=== PATIENT | male | born 1940 | race Caucasian/White ===

== ENCOUNTER 2016-11-15 14:50 | Emergency (ER) | payer OTHER ==
[~2016-11-15] VITALS: Ht 195.6 cm; Wt 108.2 kg
[2016-11-15 14:52] VITALS: Ht 195.6 cm; Wt 108.2 kg
--- NOTE | 2016-11-15 15:29 | ERA ---
ER Documentation Chief Complaint Date/Time DATE: 11/15/16 TIME: 15:26 Chief Complaint FELL AT HOME AND HIT HEAD. NO LOC. C-COLLAR IN PLACE HPI This is a 76-year-old -[place] male with a known history of hypertension that presents to the emergency department after he had a mechanical fall at home 3 hours prior to arrival. The patient had been wanting to lay down and as he attempted to lie on his bed he hit the back of his head and neck on the backboard. He did not have a loss of consciousness but indicated there was a significant amount of pain of his head and neck after he hit the wooden backboard. He denies any numbness or tingling of his upper or lower extremities. He has no chest pain or pressure that radiates to the neck arm back or jaw. He did take a Tylenol 3 with codeine and hour and half prior to arrival but there is no improvement of his pain. He states the pain is a dull achy sensation, 6 out of 10 in intensity and is exacerbated when he attempts to move his neck. The patient was immediately placed in a c-collar upon arrival into the emergency department ROS All systems reviewed and are negative except as per history of present illness. PMhx/Soc History of Surgery: Yes (FEET) Anesthesia Reaction: No Hx Cardiac Disorders: Yes (HTN) Hx Miscellaneous Medical Probl: Yes (DM) Hx Alcohol Use: Yes Hx Substance Use: No Hx Tobacco Use: Yes Smoking Status: Former smoker Physical Exam Vitals Vital Signs Date Time Temp Pulse Resp B/P Pulse Ox O2 Delivery O2 Flow Rate FiO2 11/15/16 14:52 98.0 78 18 188/89 95 Physical Exam Constitutional:Well-developed. Well-nourished. Patient placed in a c-collar for immobilization HEENT:Normocephalic. Atraumatic.Pupils were equal round reactive to light. Moist mucous membranes.No tonsillar exudates. No nasoseptal hematoma. No hemotympanum. Neck: No nuchal rigidity. No lymphadenopathy. Posterior cervical spine tenderness over C4-C5 with no step-offs. Respiratory: Not using accessory muscles of respiration.Lungs were clear to auscultation bilaterally. No rhonchi. No rales. No wheezing. Cardiovascular: Regular rate regular rhythm.No murmurs. No rubs were appreciated.S1, S2 normal. Distal pulses are palpable 2+ bilaterally. GI: Abdomen was soft. Nontender. Non Distended. No pulsatile abdominal masses or bruits. No rebound. No guarding. Bowel sounds were present and normal. Muscle skeletal: Full range of motion of both the upper and lower extremities bilaterally.Normal muscle tone.No assymetrical calf tenderness or swelling. Skin: No petechia, no purpura. No lesions on the palms or the soles of the feet. No maculopapular rash. NEURO: Patient was alert, awake, orientated x3.No facial droop. Gait observed and normal with no ataxia.Speech had regular rate and rhythm. No focal neurological deficits. Results 24 hrs Current Medications Medications (Trade) Dose Ordered Sig/Jacqueline Route PRN Reason Start Time Stop Time Status Last Admin Dose Admin Acetaminophen/ Hydrocodone Bitart (Ona (5/325)) 1 tab ONCE ONCE PO 11/15/16 15:30 11/15/16 15:31 Procedures/MDM This patient presented to the emergency department with blunt head and neck trauma. The patient was placed in a c-collar and cervical spine immobilization was maintained utilizing the Nexus criteria. The patient had a CT scan of his head and neck which showed no acute fractures or dislocations. There is no intracerebral hemorrhage mass-effect or midline shift. I did feel the patient' s physical exam findings were suggestive of a cervical neck sprain and that the patient could be safely discharged home. He was given Ona in the emergency department for analgesic control The patient was discharged home in fair condition. They were instructed to return to the emergency department at any time if there was any worsening of their condition. The patient stated they would follow up with their PCP in the next 24-48 hours to initiate a suitable medication regimen under the care of their PCP as well as to allow their PCP to monitor any drug reactions. The patient was discharged home with prescriptions after they gave informed consent to the new medication. They were also fully informed by myself on the adverse effects and adverse drug interactions in order to provide adequate safeguards to prevent possible adverse reactions to medications. Departure Diagnosis: Primary Impression: Injury of neck Qualified Code: S19.9XXA - Injury of neck, initial encounter Additional Impression: Closed head injury Qualified Code: S09.90XA - Closed head injury, initial encounter Condition: Fair MONIQUE SPANN Nov 15, 2016 15:29
[2016-11-15] MEDS ORDERED: HYDROCODONE/APAP (5/325) TAB PO ONE (15:30)
[2016-11-15] MEDS ORDERED: HYDR-906 PO (15:30)
[2016-11-15] MEDS ORDERED: DOCU-144 PO (15:30)
[2016-11-15] MEDS ORDERED: ASPI-664 PO (15:36)
[2016-11-15] MEDS ORDERED: METO-448 PO (15:36)
[2016-11-15] MEDS ORDERED: LISI-313 PO (15:37)
[2016-11-15] MEDS ORDERED: LEVO25TA53 PO (15:37)
[2016-11-15] MEDS ORDERED: DONE10TA7 PO (15:41)
[2016-11-15] MEDS ORDERED: TYL2 PO (15:42)
--- NOTE | 2016-11-15 16:25 | RADRPT ---
PROCEDURE: CT Brain without contrast. CLINICAL INDICATION: Headache status post fall. TECHNIQUE: A CT of the brain was performed on a multidetector CT scanner utilizing axial sections from the skull base through the vertex without contrast. Images were reviewed on a high-resolution [employer] workstation. Exam CTDI = 43.16 mGy and the DLP = 720.23 mGy-cm. One or more of the following dose reduction techniques were used: Automated exposure control Adjustment of the mA and/or kV according to patient size. Use of iterative reconstruction technique. COMPARISON: . FINDINGS: Mild diffuse cerebral and cerebellar atrophy is present. There is proportionate dilatation of the v entricular system and sulci in a symmetric fashion. There is prominence of the extraaxial spaces sec ondary to atrophy. There is no evidence of intracranial hemorrhage, mass effect or midline shift. N o abnormal intra-axial or extra-axial fluid collections are seen. The density of the brain is shabana l and the zuniga/white matter differentiation is well preserved. Mild patchy diffuse deep white matte r microangiopathic ischemic change is seen. The osseous structures are unremarkable. Paranasal s inuses are clear. There are degenerative changes at the atlantoaxial joint with prominent pannus fo rmation resulting in mild to moderate narrowing at the craniocervical junction. IMPRESSION: 1. No intracranial hemorrhage, mass effect or midline shift. 2. Mild generalized atrophy. Mild microangiopathic ischemic change. RPTAT: BB .Quique Hammond MD, Date Time Electronically viewed and signed by .Quique Hammond MD, on 11/15/2016 16:24 .O/
--- NOTE | 2016-11-15 16:33 | RADRPT ---
PROCEDURE: CT Cervical Spine. CLINICAL INDICATION: Neck pain status post fall TECHNIQUE: A CT of the cervical spine was performed on a multi-slice CT scanner utilizing high-res olution axial imaging from the skull base through the cervical thoracic junction. Sagittal, coronal , and multiplanar reformatted images were made. CTD I: 22.23 mGy and DLP: 501.40 mGy-cm One or more of the following dose reduction techniques were used: Automated exposure control. Adjustment of the mA and/or kV according to patient size. Use of iterative reconstruction technique. COMPARISON: None FINDINGS: There is straightening of the cervical lordosis. No vertebral body subluxation is seen. No fracture s are evident. The posterior elements are intact. The surrounding soft tissues are normal in appea renate. There are degenerative changes of the atlantoaxial joint with a prominent posterior pannus re sulting in mild to moderate narrowing of the craniocervical junction. C2-C3: The disk height is maintained. There is a broad-based central disk protrusion. Small uncove rtebral spurring and mild facet arthropathy are seen at this level. There is mild central canal and right neural foraminal stenosis. The left neural foramen is adequately patent. C3-C4: There is mild to moderate disk height loss. Broad-based central disk protrusion, prominent right-sided uncovertebral spurring and mild facet arthropathy are seen at this level. There is mode rate to severe central canal stenosis with probable cord compression. There is severe right neural foraminal stenosis. There is mild left neural foraminal stenosis. C4-C5: There is moderate disk height loss. Disk osteophyte complex, prominent uncovertebral spurri ng and mild to moderate facet arthropathy are seen at this level. There is severe right neural fora jed stenosis. There is moderate to severe central canal stenosis with cord compression. There is mild to moderate left neural foraminal stenosis. C5-C6: There is moderate disk height loss. Disk osteophyte complex, prominent left-sided uncoverte bral spurring and mild to moderate right and mild left facet arthropathy are seen at this level. Th ere is severe left and moderate right neural foraminal stenosis. There is moderate central canal st enosis with flattening of the cord. C6-C7: There is mild to moderate disk height loss. Disk osteophyte complex, superimposed central d isk protrusion indenting the thecal sac. There is moderate to severe right and moderate left neural foraminal stenosis. C7-T1: There is moderate disk height loss with discogenic endplate changes. Disk osteophyte comple x, prominent uncovertebral spurring and mild to moderate right facet arthropathy are seen at this le ayden. There is moderate to severe right and mild left neural foraminal stenosis. There is mild centr al canal stenosis. IMPRESSION: 1. No acute fracture or traumatic malalignment. 2. Multilevel severe degenerative changes more evident at C3-C4 through C6-C7 with severe multileve l neural foraminal stenosis, as described above. 3. 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 RPTAT: BB .Quique Hammond MD, Date Time Electronically viewed and signed by .Quique Hammond MD, on 11/15/2016 16:32 .O/
[2016-11-15 17:12] VITALS: BP 154/76; PULSE 68; RESP 18; TEMP 98
== END 2016-11-15 17:32 | disposition home or self-care (01) ==
LOC: E/R 14:50
DX: S19.9XXA Unspecified injury of neck, initial encounter (principal); I10 Essential (primary) hypertension; E11.9 Type 2 diabetes mellitus without complications; R51 Headache; W18.09XA Striking against other object with subsequent fall, initial encounter; Y92.9 Unspecified place or not applicable; Z87.891 Personal history of nicotine dependence
CPT/HCPCS: 70450; 72125